=== PATIENT | female | born 1935 | race Caucasian/White ===

== ENCOUNTER 2017-01-11 15:01 | Outpatient (CLI) | payer MEDICARE, OTHER ==
[2013-05-02 18:12] VITALS: BP 150/98
--- NOTE | 2017-01-11 22:22 | Diagnostic Imaging Report ---
[facility] [address] [facility].[address] [id number] Report Submission Date: Jan 11, 2017 4:18:46 PM CDT Patient Study Name: SERA TUCKER Date: Jan 11, 2017 3:24:53 PM CDT Modality Type: CT\SR Gender: F Description: CT ABD & PELVIS W/ CON : 39 Institution: [facility] Physician: TWIN AYALA - DEWAY[facility] CT of the abdomen and pelvis with contrast Clinical history: Generalized abdominal pain with nausea and abdominal distension. Contrast administered: 92 ml of Omnipaque. Technique: CT of the abdomen and pelvis is performed with intravenous infusion of contrast. Sagittal and coronal reconstructions are performed by the technologist. Findings: The visualized lung bases are clear. The liver is diffusely hypodense consistent with hepatic steatosis. There is no pancreatic or adrenal abnormality. The spleen demonstrates normal attenuation without focal defect. The kidneys demonstrate symmetric enhancement. Retroaortic left renal vein is incidentally noted. Vascular calcification is present in the abdominal aorta without evidence of aneurysm. The appendix is not identified with certainty, but there is no other evidence of appendicitis. Stool is present throughout the colon. Diverticula are evident in the descending and sigmoid colon without evidence of diverticulitis. Bladder is unremarkable. There is no free fluid in the pelvis or abdomen. Right inguinal hernia is evident containing only fat. Impression: 1. Increased stool throughout the colon. 2. Hepatic steatosis. 3. The appendix is not identified, but there is no other evidence of appendicitis. 4. Vascular calcification. 5. Diverticulosis. 6. Right inguinal hernia containing only fat. Electronically signed on Jan 11, 2017 4:18:46 PM CDT by: Ramo GODINEZ
== END 2017-01-11 15:02 ==
LOC: RAD 15:01
PROVIDERS: ATTEND Nurse Practitioner Family
DX: R11.0 Nausea (principal); R14.0 Abdominal distension (gaseous); R10.84 Generalized abdominal pain
CPT/HCPCS: 74177; A9698